=== PATIENT | male | born 1965 | race Two or more races ===

== ENCOUNTER 2016-11-23 21:38 | Emergency (ER) | payer MEDICAID ==
[~2016-11-23] VITALS: Ht 157.5 cm; Wt 64.0 kg
[~2016-11-23 21:38] MED LIST: ALBU18HF2 IH; ASPI-1035 PO; ATOR20TA PO; METO50TA5 PO; MONT10TA21 PO; NITR0.4T SL
[2016-11-23] MEDS ORDERED: KETOROLAC 30MG/ML VIAL IV STA (22:37)
[2016-11-23] MEDS ORDERED: ONDANSETRON HCL 4MG/2ML VIAL IV STA (22:37)
[2016-11-23] MEDS ORDERED: SODIUM CHLORIDE 0.9% 1,000 ML IV ONE (22:37)
[2016-11-23 22:51] LABS: BASOPHILS % 0.4 % (0.0-2.0); EOSINOPHILS % 4.9 % (0.0-5.0); HEMATOCRIT. 40.6 % (42.0-52.0); HEMOGLOBIN. 13.7 g/dL (14.0-18.0); LYMPHOCYTES % 17.9 % (20.0-50.0); MEAN CORPUSCULAR HEMOGLOBIN 29.2 pg (28.0-32.0); MEAN CORPUSCULAR VOLUME 86.3 fL (80.0-94.0); MEAN PLATELET VOLUME 8.3 fl (7.4-10.4); MONOCYTES % 9.5 % (2.0-8.0); NEUTROPHILS % 67.3 % (40.0-76.0); PLATELET 245 x1000/uL (130-400)
[2016-11-23 23:05] LABS: CARBON DIOXIDE 26 mEq/L (21-32); CHLORIDE 105 mEq/L (98-107)
[2016-11-24] MEDS ORDERED: ONDANSETRON HCL 4MG/2ML VIAL IV ONE (00:15)
[2016-11-24] MEDS ORDERED: MORPHINE SULFATE 4 MG/ML CPJ (NOT FOR IM USE) IV ONE (00:15)
[2016-11-24 00:30] LABS: CLARITY URINE TURBID (CLEAR); COLOR URINE DARK YELLOW (YELLOW); GLUCOSE URINE NEGATIVE (NEGATIVE); KETONES URINE NEGATIVE (NEGATIVE); LEUKOCYTE ESTERASE URINE NEGATIVE (NEGATIVE); NITRITE URINE NEGATIVE (NEGATIVE); OCCULT BLOOD URINE 3+ (NEGATIVE); PROTEIN URINE TRACE (NEGATIVE); SPECIFIC GRAVITY URINE 1.031 (1.005-1.030); UROBILINOGEN URINE 0.2 E.U./dL (0.2-1.0)
[2016-11-24 02:48] VITALS: BP 155/86
== END 2016-11-24 02:51 | disposition home or self-care (01) ==
LOC: ER 22:40
DX: N13.2 Hydronephrosis with renal and ureteral calculous obstruction (principal); R11.2 Nausea with vomiting, unspecified; J45.909 Unspecified asthma, uncomplicated; E78.00 Pure hypercholesterolemia, unspecified; I11.9 Hypertensive heart disease without heart failure; Z88.6 Allergy status to analgesic agent; Z79.899 Other long term (current) drug therapy
CPT/HCPCS: 36415; 74176; 80053; 81001; 83690; 85025; 96361; 96374; 96375; 96376; 99285; J1885; J2270; J2405; J7030; Z7610

== ENCOUNTER → 2019-12-15 | Outpatient (CLI) | payer MEDICAID ==
[~2019-12-15] MED LIST changes: -ASPI-1035 PO; +ASPI-1497 PO; +METO-539 PO; -METO50TA5 PO
== END | disposition home or self-care (01) ==
LOC: LAB 07:03
PROVIDERS: ATTEND Specialist
DX: R05 Cough (principal); Z20.828 Contact with and (suspected) exposure to other viral communicable diseases
CPT/HCPCS: C9803; U0003

== ENCOUNTER → 2019-12-17 | Day surgery (SDC) | payer MEDICAID ==
[~2019-12-17] VITALS: Ht 167.6 cm; Wt 63.5 kg
[~2019-12-17] MED LIST changes: +FENTANYL CITRATE/PF 50MCG/ML 2ML VIAL ONE; +FLUT1DIS3 IH; +IBUP-2029 PO; +IBUP-2077 PO; +IOHEXOL-300 100 ML BOTTLE ONE; +LIDOCAINE HCL 1% 20ML VIAL (Pyxis) INJ ONE; +MIDAZOLAM HCL 2 MG/2 ML VIAL ONE
== END | disposition home or self-care (01) ==
LOC: CCL 08:29
PROVIDERS: ATTEND Specialist
DX: I25.10 Atherosclerotic heart disease of native coronary artery without angina pectoris (principal); I10 Essential (primary) hypertension; E78.5 Hyperlipidemia, unspecified; J44.9 Chronic obstructive pulmonary disease, unspecified; G47.30 Sleep apnea, unspecified; Z79.82 Long term (current) use of aspirin; Z79.899 Other long term (current) drug therapy; Z88.2 Allergy status to sulfonamides; Z88.8 Allergy status to other drugs, medicaments and biological substances; Z72.89 Other problems related to lifestyle
CPT/HCPCS: 93458; C1769; C1887; C1893; J1644; J2250; J3010; J3490; Q9967; 99152; G0500